=== PATIENT | female | born 1995 | race Caucasian/White ===

== ENCOUNTER 2023-09-08 09:03 | Emergency (ER) | payer OTHER, SELFPAY ==
[2023-09-08 09:05] VITALS: BP 126/77
--- NOTE | 2023-09-08 09:31 | ED.GENMED ---
History of Present Illness
General
Chief Complaint: Musculo-Skeletal Complaint
Source: patient
Exam Limitations: none
Time Seen by Provider: 09/08/23 09:10
Nursing documentation reviewed up to this point in time: agreed with
Travel History
Have you had any contact with someone who has COVID-19?: No
Do you have any symptoms of coronavirus? Fever > 100 degrees, chills, cough, shortness of breath, sore throat, loss of taste or smell, muscle aches, or headache?: No
History of Present Illness
History of Present Illness:
pt is a 28 y/o F with ho depression
here with left sided neck pain that started about 3-4 days ago without initiating injury
says she noticed it was mild and it has progressed destpie taking motrin 800 mg twice a day and applying ice. she feels that the pain is worse today
no weakness, numbness, tingling, chiropractor visit, fever, chills;
Past History
Past History
ED Past Medical History: None
ED Past Surgical History:
Social History
Tobacco: Non-smoker
Alcohol: Occasional
Drug: None
Personal: Single
Living: with family
Employment: Employed
Review of Systems
Review of Systems
Allergies reviewed?: Yes
All Other Systems: Not applicable
Phy Exam
Physical Exam
Physical Exam:
GENERAL: Alert , in no apparent distress
EYE: pupils equal and reactive
NECK: no midline tenderness
pt has some spasm of the left paraspinal muscle base of cervical spine and tenderness in trapezius on that side; limited painful ROM
CARDIAC: Regular rate and rhythm .
LUNGS: Clear breath sounds bilaterally, no acute respiratory distress, no wheezes/rales/rhonchi
ABDOMEN: Soft, without focal tenderness, no r/g, no cvat, normal bowel sounds
NEUROLOGICAL: Alert and oriented, no focal neuro deficits
SKIN: Warm and dry, skin intact.
MUSCULOSKELETAL: No edema, well perfused. neg mine's sign
PSYCH: Normal and appropriate interaction.
Course
Orders/Labs/Results
Orders:
Orders
09/08/23 09:08
Test Result ONCE
09/08/23 09:10
, Urine Qualitative Screen [HCG, Urine Qualitative Screen] Urgent
Date Specimen was Collected: 09/08/23
Time Specimen was Collected: 09:08
09/08/23 09:30
Cervical Spine 4 or 5 Vw [CR Cervical Spine 4 Or 5 Vw] Urgent
Comment:
Reason For Exam: neck pain
09/08/23 10:08
Acetaminophen [Tylenol] 650 mg PO NOW STA
Ketorolac [Toradol] 30 mg IM NOW STA
Vital Signs
Initial and Last Documented VS:
Initial Vital Signs
Temp Pulse Resp BP Pulse Ox
98.7 F 91 16 126/77 98
09/08/23 09:05 09/08/23 09:05 09/08/23 09:05 09/08/23 09:05 09/08/23 09:05
Last Documented Vital Signs
Temp Pulse Resp BP Pulse Ox
98.7 F 91 16 126/77 98
09/08/23 09:05 09/08/23 09:05 09/08/23 09:05 09/08/23 09:05 09/08/23 09:05
MDM/Problems Addressed
Differential Diagnosis Includes:
Trapezius spasm, cervical strain, torticollis
MDM/Problems Addressed:
28-year-old female with left-sided neck pain gradual over the last 4 days, difficulty sleeping last night and feels limited range of motion and tight in her left trapezius. There is no numbness tingling or weakness in her arms or legs, no vision
changes or dizziness. She has not had any chiropractic manipulation or trauma. She is never had this before and cannot recall an inciting injury. On exam the patient has a spasm of her left trapezius muscle, some limited range of motion but
normal neurologic exam. Screening x-rays show a loss of lordosis suggestive of muscle spasm. Patient's hCG was negative. Toradol, Flexeril, lidocaine, Tylenol
*Critical Care Note
Total Time (30-74mins, 75-104mins- exclusive of procedures): Not Applicable
ED Attending Note
-
Portions of this chart may have been created with voice recognition software.� Occasional wrong word or��sound alike� substitutions may have occurred due to the inherent limitations of voice recognition software.
Discharge Plan
Departure
Patient Disposition: Home (Routine Discharge)
Date of Disposition: 09/08/23
Time of Disposition: 10:09
Patient with high blood pressure during this ER visit?: No
Condition: Fair
Covid-19: Not Applicable
Discharge Problem:
Spasm of left trapezius muscle
Instructions: Muscle Spasms (DC)
Prescriptions:
New
cyclobenzaprine 10 mg tablet
10 mg PO HS PRN (Reason: muscle spasm) Qty: 10 0RF
ibuprofen 600 mg tablet
600 mg PO Q8H PRN (Reason: Pain) Qty: 20 0RF
No Action
prenat.vits,adri,epv-oxgf-yxbla Tablet
1 tab PO DAILY
escitalopram oxalate [Lexapro] 20 mg Tablet
20 mg PO DAILY
bupropion HCl [Wellbutrin XL] 300 mg Tablet Extended Release 24 Hr
300 mg PO DAILY
acetaminophen 325 mg Tablet
650 mg PO Q4HPRN PRN (Reason: mild pain) Qty: 0 0RF
oxycodone-acetaminophen 5-325 mg Tablet
1 tab PO Q4HPRN PRN (Reason: moderate pain) Qty: 0 0RF
ibuprofen 600 mg Tablet
600 mg PO Q6HPRN PRN (Reason: cramps) Qty: 0 0RF
Referrals:
NONE,* [Active] -
Activity Restrictions/Additional Instructions:
YOUR NECK PAIN IS LIKELY MUSCULAR
YOU CAN TAKE TYLENOL 3 TIMES A DAY FOR PAIN NEEDED
FLEXERIL 10 MG ONCE OR TWICE A DAY FOR MUSCLE SPASM
HEAT OFF AND ON
MOTRIN 600 MG EVERY 8 HOURS FOR PAIN NEEDED
LIDOCAINE PATCH 12 HOURS ON 12 HOURS OFF
RETURN FOR ANY CONCERNS, SEVERE PAIN, WEAKNESS, NUMBNESS, OR ANY CONCERNS.
YOUR URINE TEST WAS NEGATIVE
TAKE ANOTHER TEST IN THE NEXT FEW DAYS IF YOU STILL DO NOT GET A PERIOD.
Interventions
Interventions:
*Risk Screen - Suicide Last Done: 09/08/23 09:14
*Neglect/Abuse Screening Last Done: 09/08/23 09:14
*ED COVID-19 Vaccine History Last Done: 09/08/23 09:05
*Nursing Disposition Last Done: 09/08/23 10:43
ED-Musculoskeletal Assessment Last Done: 09/08/23 09:14
Discharge Date and Time
Discharge Date/Time: 09/08/23 10:43
[2023-09-08 09:42] LABS: HCG, Urine Qualitative Screen Negative
[2023-09-08] MEDS: TYLENOL 650 MG PO (10:28)
[2023-09-08] MEDS: TORADOL 30 MG IM (10:28)
== END 2023-09-08 10:43 | disposition home or self-care (01) ==
LOC: EMR 09:03
PROVIDERS: EMERGENCY PHYSICIAN Emergency Medicine; FAMILY PHYSICIAN Family Medicine
DX: M62.838 Other muscle spasm (principal); M54.2 Cervicalgia; M43.6 Torticollis; F32.A Depression, unspecified; Z88.0 Allergy status to penicillin
CPT/HCPCS: 99284; 96372; 72050; 81025

== ENCOUNTER 2024-11-16 16:21 | Emergency (ER) | payer BC, SELFPAY ==
[2024-11-16 16:25] VITALS: BP 105/83
--- NOTE | 2024-11-16 17:16 | ED.GENMED ---
History of Present Illness
General
Chief Complaint: Abdominal Pain
Source: patient
Exam Limitations: none
Time Seen by Provider: 11/16/24 17:06
Nursing documentation reviewed up to this point in time: agreed with
History of Present Illness
History of Present Illness:
29-year-old female with past medical history as noted presents to the ER for evaluation of abdominal pain. Patient reports onset of symptoms 3 days ago and they have been constant since that time although intensity waxes and wanes. She reports
pain is in the epigastrium radiates towards the left upper abdomen as well as towards the back. No clear triggering or relieving factors noted. Associated with mild nausea no vomiting. No change in bowel movements�no diarrhea, constipation, no
pale stools or bloody stools. No dysuria, hematuria, change in frequency. She is having some light vaginal bleeding as she is currently on her normal menstrual period but no heavier than usual. No fevers or chills. She does note that she had
outpatient ultrasound recently that showed gallstones and was referred to a surgeon and has follow-up later this week.
Past History
Past History
ED Past Medical History: None
ED Past Surgical History:
Social History
Tobacco: Non-smoker
Alcohol: Occasional
Drug: None
Personal: Single
Living: with family
Employment: Employed
Review of Systems
Review of Systems
All Other Systems: ROS reviewed and negative except as documented in HPI and ROS
Constitutional: Denies fever or chills
Respiratory: Denies trouble breathing
Cardiac: Denies chest pain
ABD/GI: Reports abdominal pain and nausea; Denies vomiting, diarrhea, constipated, bloody stools or black stools
: Reports bleeding (On menstrual period); Denies dysuria, frequency or flank pain
Musculoskeletal: Denies neck pain
Neurological: Denies headache
Phy Exam
Physical Exam
Physical Exam:
General: Awake, alert, oriented x3; no acute distress
Head: Normocephalic, atraumatic
Eyes: Conjunctiva normal, sclera anicteric
Throat: Airway intact, handling secretions
Neck: Trachea midline
Lungs: Clear to auscultation bilaterally, no wheezing, rales, rhonchi
Heart: Regular rate and rhythm, no murmurs, gallops, or rubs
Abd: Soft, non distended, minimal epigastric tenderness
Back: No CVA tenderness
Neuro: No gross deficits
Skin: no rash in area of concern
Extremities: Warm and well-perfused
Scores
Heart Failure Risk
Heart Failure Risk Score: Not Applicable
Heart Score for Chest Pain Patients
STEMI patient?: Not applicable
Withdrawal Assessment of Alcohol
Withdrawal Assessment Completed?: Not applicable
Course
Orders/Labs/Results
Orders:
Orders
11/16/24 17:07
US Abdomen Complete/Upper Urgent
Comment:
Reason For Exam: upper abd pain
11/16/24 17:18
Complete Blood Count/With Diff Urgent
Comprehensive Metabolic Panel Urgent
HCG, Serum Qualitative Screen Urgent
Comment: ADD ON
Lipase Urgent
11/16/24 17:19
Electrocardiogram (*1) Urgent
Reason for Study: Abdominal Pain
EKG- Treatment ONCE
Test Result ONCE
11/16/24 17:25
Add On- LAB Urgent
Tests Added?: HCG qual
Abnormal Lab Results
11/16/24
17:18
Hct 36.5 L %
(37.0-47.0)
MCV 80.6 L fL
(81.0-99.0)
MCH 26.7 L pg
(27.0-31.0)
RDW 15.3 H %
(11.5-14.5)
Absolute Lymphs (auto) 3.9 H 10^3/uL
(1.2-3.4)
11/16/24 17:18
11/16/24 17:18
Vital Signs
Initial and Last Documented VS:
Initial Vital Signs
Temp Pulse Resp BP Pulse Ox
36.9 C 91 18 105/83 97
11/16/24 16:25 11/16/24 16:25 11/16/24 16:25 11/16/24 16:25 11/16/24 16:25
Last Documented Vital Signs
Temp Pulse Resp BP Pulse Ox
36.8 C 81 16 105/74 98
11/16/24 18:28 11/16/24 18:28 11/16/24 18:28 11/16/24 18:28 11/16/24 18:28
MDM/Problems Addressed
Differential Diagnosis Includes:
Cholelithiasis/biliary colic, choledocholithiasis, cholecystitis, pancreatitis, gastritis, PUD
MDM/Problems Addressed:
29-year-old female presents with abdominal pain x 3 days constant although intensity waxing waning. Associate with nausea but no vomiting. Vital signs are normal here. Physical exam as above�minimally tender. Somewhat atypical for biliary pain
as she says pain is epigastric radiates more towards the left however she did have recently diagnosed gallstones which are known. Will plan to place an IV check labs including a CBC and a CMP, lipase. Check an hCG. Will check an upper abdominal
ultrasound. Reassess after the above.
Labs reviewed: CBC shows no leukocytosis or other abnormalities of acute clinical significance. Her CMP shows no acute abnormalities. Notably her LFTs are normal. Her lipase is normal. Her hCG is negative. Her upper abdominal ultrasound shows
contracted gallbladder with at least 1 gallstone. No definitive gallbladder wall thickening or pericholecystic fluid noted, negative Nolasco sign. Nothing to suggest biliary tract dilation. Overall clinical picture is inconsistent with a diagnosis
of cholecystitis. Her symptoms could be from biliary colic although given her report of pain in the epigastrium rating more towards the left I question whether this might be more related to gastritis or PUD rather than gallbladder related. She is
already scheduled for surgical follow-up this week for her gallbladder and I think this is a reasonable plan. Will start a PPI in the meantime in case this is more. Stable for discharge. Patient comfortable with this plan. All questions answered.
*Radiology
Radiology exam reviewed: radiology read reviewed
*Pulse Oximetry
Patient hypoxic: no
*EKG
Interpreted by ED Provider?: Yes
Heart Rate: 84
Rate: normal
Rhythm: sinus
Hamel: normal axis
Interval: normal interval
QRS Pattern: low voltage
Ischemia: no ischemia
*Critical Care Note
Total Time (30-74mins, 75-104mins- exclusive of procedures): Not Applicable
Data Reviewed
Source: patient
ED Attending Note
-
Portions of this chart may have been created with voice recognition software.� Occasional wrong word or��sound alike� substitutions may have occurred due to the inherent limitations of voice recognition software.
Discharge Plan
Departure
Patient Disposition: Home (Routine Discharge)
Date of Disposition: 11/16/24
Time of Disposition: 19:18
Patient with high blood pressure during this ER visit?: No
Discharge Problem:
Abdominal pain
Instructions: Abdominal Pain
Prescriptions:
New
pantoprazole [Protonix] 40 mg tablet,delayed release (DR/EC)
40 mg PO DAILY Qty: 30 0RF
No Action
prenat.vits,adri,mam-zcor-voxvm Tablet
1 tab PO DAILY
escitalopram oxalate [Lexapro] 20 mg Tablet
20 mg PO DAILY
bupropion HCl [Wellbutrin XL] 300 mg Tablet Extended Release 24 Hr
300 mg PO DAILY
acetaminophen 325 mg Tablet
650 mg PO Q4HPRN PRN (Reason: mild pain) Qty: 0 0RF
oxycodone-acetaminophen 5-325 mg Tablet
1 tab PO Q4HPRN PRN (Reason: moderate pain) Qty: 0 0RF
ibuprofen 600 mg Tablet
600 mg PO Q6HPRN PRN (Reason: cramps) Qty: 0 0RF
cyclobenzaprine 10 mg tablet
10 mg PO HS PRN (Reason: muscle spasm) Qty: 10 0RF
ibuprofen 600 mg tablet
600 mg PO Q8H PRN (Reason: Pain) Qty: 20 0RF
Referrals:
Emily Abdi DO [Family Provider] - Call in 1-3 days for appt
Activity Restrictions/Additional Instructions:
Thank you for visiting the Emergency Department at [facility].
1. Please schedule a follow up appointment as directed. Call first thing tomorrow morning to make an appointment.
2. If indicated, please take your medications as instructed and indicated on discharge paperwork.
3. If any of your symptoms do not improve, or persist, or become more severe within 6-12 hours, please return to the emergency department for further care.
4. Please return to the emergency department if you develop a headache, neck pain/stiffness, fever greater than 100.4F, chest pain, shortness of breath, persistent nausea, vomiting, slurred speech, difficulty walking, numbness/tingling, weakness,
signs of infection or any other symptoms that are worrisome to you.
Please call [phone] if you have any questions.
Interventions
Interventions:
*Risk Screen - Suicide Last Done: 11/16/24 16:25
*General Assessment Last Done: 11/16/24 17:25
*Neglect/Abuse Screening Last Done: 11/16/24 16:25
*ED- Fall Risk Assessment Last Done: 11/16/24 17:25
MU-[id number]-[id number] Assessment Last Done: 11/16/24 17:25
Discharge Date and Time
Print Language: UGANDAN
[2024-11-16 17:25] VITALS: BMI 42.4
[2024-11-16 17:31] LABS: % Basophils 0.8 % (0-2); % Eosinophils 1.7 % (0-6); % Immature Granulocytes 0.2 % (0-0.5); % Lymphocytes 46.6 % (20.5-51.1); % Monocytes 6.5 % (1.7-9.3); % Neutrophils 44.2 % (42.2-75.2); Absolute Basophils 0.1 10^3/uL (0-0.2); Absolute Eosinophils 0.1 10^3/uL (0-0.7); Absolute Lymphocytes 3.9 10^3/uL (1.2-3.4); Absolute Monocytes 0.5 10^3/uL (0.1-0.6); Absolute Neutrophils 3.7 10^3/uL (1.4-6.5); Hematocrit 36.5 % (37.0-47.0); Hemoglobin 12.1 g/dL (12.0-16.0); Mean Corp Hgb Conc. 33.2 g/dL (33.0-37.0); Mean Corpuscular Hgb 26.7 pg (27.0-31.0); Mean Corpuscular Volume 80.6 fL (81.0-99.0); Nucleated Red Blood Cells % 0 %; Platelet Count 378 10^3/uL (130-400); Red Blood Cell Count 4.53 10^6/uL (4.20-5.40); Red Cell Dist. Width 15.3 % (11.5-14.5); White Blood Cell Count 8.3 10^3/uL (4.8-10.8)
[2024-11-16 17:49] LABS: ALT (SGPT) 15 U/L (0-35); AST (SGOT) 17 U/L (14-36); Albumin 4.1 g/dl (3.5-5.0); Alkaline Phosphatase 55 U/L (38-126); Blood Urea Nitrogen 9 mg/dl (7-17); Calcium 9.5 mg/dl (8.4-10.2); Carbon Dioxide 27 mmol/L (22-30); Chloride 107 mmol/L (98-107); Estimated Creatinine Clearance 119 ml/min; Glucose 85 mg/dl (70-99); Lipase 140 U/L (23-300); Sodium 141 mmol/L (135-145); Total Bilirubin 0.4 mg/dl (0.2-1.3); Total Protein 6.9 g/dl (6.3-8.2); eGFR > 60.00
[2024-11-16 18:01] LABS: HCG, Serum Qualitative Screen Negative
[2024-11-16 18:28] VITALS: BP 105/74
[2024-11-16 19:40] VITALS: BP 112/71
== END 2024-11-16 19:40 | disposition home or self-care (01) ==
LOC: EMR 16:21
PROVIDERS: EMERGENCY PHYSICIAN Emergency Medicine; FAMILY PHYSICIAN Family Medicine
DX: K80.20 Calculus of gallbladder without cholecystitis without obstruction (principal); R10.12 Left upper quadrant pain
CPT/HCPCS: 99284; 76700; 80053; 83690; 84703; 85025; 93005